=== PATIENT | female | born 1960 | race Caucasian/White ===

== ENCOUNTER 2023-11-24 09:32 | Outpatient (CLI) | payer MEDICARE, BC, SELFPAY ==
--- NOTE | 2023-11-24 11:19 | W.ANESCHARGE ---
Anesthesia Charges Start Date/Time Anesthesia Start Date: 11/24/23 Anesthesia Start Time: 10:37 Stop Date/Time Anesthesia Stop Date: 11/24/23 Anesthesia Stop Time: 11:12
--- NOTE | 2023-11-24 12:01 | W.ANESCHARGE ---
Anesthesia Charges Start Date/Time Anesthesia Start Date: 11/24/23 Anesthesia Start Time: 10:37 Stop Date/Time Anesthesia Stop Date: 11/24/23 Anesthesia Stop Time: 11:12
== END 2023-11-24 09:33 | disposition home or self-care (01) ==
LOC: OP CLINIC 09:35
PROVIDERS: PCP Student in an Organized Health Care Education/Training Program; Visit Provider Surgery
DX: K63.5 Polyp of colon (principal); Z86.010 Personal history of colon polyps; Z98.0 Intestinal bypass and anastomosis status
CPT/HCPCS: 45385; 811; 88305; J2704